=== PATIENT | female | born 1950 ===

== ENCOUNTER → 2017-06-22 19:30 | Outpatient (CLI) | payer MEDICARE ==
[2017-06-22 21:17] LABS: T4 THYROXIN - FREE 1.16 ng/dL (0.76-1.46); THYROID STIMULATING HORMONE 1.93 uIU/mL (0.36-3.74)
== END | disposition home or self-care (01) ==
LOC: D.LABREF 19:30
PROVIDERS: Family Medicine
DX: F41.9 Anxiety disorder, unspecified (principal)